=== PATIENT | male | born 1995 | race Caucasian/White ===

== ENCOUNTER 2016-09-11 13:05 | Emergency (ER) | payer BC ==
--- NOTE | 2016-09-11 17:06 | EDPHY ---
H & P Smoking Status: Current every day smoker Time Seen by Provider: 09/11/16 13:29 HPI/ROS: CHIEF COMPLAINT: Vomiting, diarrhea, anxiety HISTORY OF PRESENT ILLNESS: 21-year-old male presents to the emergency department by ambulance with multiple episodes of vomiting and diarrhea. Symptoms began this morning around 8:00 a.m.. He states that he felt fine last evening. He has had 2 or 3 episodes of diarrhea and 3 or 4 episodes of vomiting. He denies melena or blood in his stool. Denies fevers or chills. No known ill contacts. No recent travel. He denies abdominal pain. He states that he upon EMS arrival he became extremely anxious. He apparently was hyperventilating and developed carpopedal spasms. He denies headache. Denies abdominal surgeries. REVIEW OF SYSTEMS: Constitutional: No fever, no chills. Eyes: No double or blurry vision. ENT: No sore throat. Respiratory: No cough, no shortness of breath. Cardiac: No chest pain. Gastrointestinal: Vomiting, diarrhea. No abdominal pain. Genitourinary: No dysuria. Musculoskeletal: No neck or back pain. Skin: No rashes. Neurological: No headache. ([place]ataAshley) Past Medical/Surgical History: Daily marijuana use (Rebecca Ivychan Thomas) Social History: [employer] student (Rebecca Ivychan Thomas) Physical Exam: General Appearance: Alert, no distress. Vital signs are stable. Not anxious upon my examination. Eyes: Pupils equal and round. Extraocular motions are all intact. ENT: Mouth: Mucous membranes moist. Respiratory: No wheezing, rhonchi, or rales, lungs are clear to auscultation. Cardiovascular: Regular rate and rhythm. Gastrointestinal: Abdomen is soft and nontender, no masses, no rebound or guarding, bowel sounds normal. Neurological: Alert and oriented x 3, cranial nerves II through XII grossly intact Skin: Warm and dry, no rashes. Musculoskeletal: Nontender to palpate along the cervical, thoracic or lumbar spine. Neck is supple. Extremities: Full range of motion and no peripheral edema. Psychiatric: Patient is oriented X 3, there is no agitation. (Rebecca Ivychan Thomas) Constitutional: Initial Vital Signs Temperature (C) 36.8 C 09/11/16 13:13 Heart Rate 71 09/11/16 13:13 Respiratory Rate 18 09/11/16 13:13 Blood Pressure 114/67 09/11/16 13:13 O2 Sat (%) 100 09/11/16 13:13 O2 Delivery Mode Room Air Allergies/Adverse Reactions: azithromycin Allergy (Verified 09/26/13 20:28) Home Medications: Medication Instructions Recorded [facility] 09/26/13 Medical Decision Making ED Course/Re-evaluation: 21-year-old male presents to the emergency department by ambulance with vomiting and diarrhea. Clinically I think this patient has gastroenteritis and is acutely dehydrated. He received IV normal saline and Zofran. He was feeling much better. He was not anxious upon my examination. Abdomen is nontender. I do not think imaging is necessary. 5:30 p.m.: The patient is feeling much better. He is tolerating p. o. fluids and is comfortable being discharged home. Patient is searching for right home. (Ashley Ivy) Differential Diagnosis: Including but not limited to gastroenteritis, peptic ulcer disease, GERD, infectious diarrhea, dehydration, anxiety, hyperventilation syndrome (Ashley Ivy) Other Provider: The patient was evaluated and managed by the physician medical laboratory assistant. I have reviewed this chart and I agree with the findings and plan of care as documented , as indicated by my signature. I am the secondary supervising physician. ( Jana Segura) Departure - Departure Disposition: Home, Routine, Self-Care Clinical Impression: Acute gastroenteritis Condition: Good Instructions: Gastroenteritis (ED) Additional Instructions: Clear liquids and slowly advance diet as tolerated. Return to the emergency department if you develop recurring vomiting, if you develop fever, abdominal pain, or if you feel worse in any way. Referrals: Kisha Diehl DO [Doctor of Osteopathy] - 1 day, if not improved (Primary care provider varying exceptionalities teacher) Stand Alone Forms: School Excuse
[2016-09-11 17:47] VITALS: BP 113/75; PULSE 79; RESP 18; TEMP 97.7; O2SAT 98
== END 2016-09-11 17:47 | disposition home or self-care (01) ==
LOC: EDUNIT#
DX: K52.9 Noninfective gastroenteritis and colitis, unspecified (principal); F17.200 Nicotine dependence, unspecified, uncomplicated
CPT/HCPCS: 82947-QW